=== PATIENT | male | born 1965 | race Caucasian/White ===

== ENCOUNTER 2019-09-21 08:00 | Outpatient (CLI) | payer MEDICARE | END 2019-09-21 23:59 | LOC: LAB.R 08:00 | PROVIDERS: ATTEND Physician Assistant Medical | DX: C81.91 Hodgkin lymphoma, unspecified, lymph nodes of head, face, and neck (principal) | CPT/HCPCS: 87070; 87181; 87205 ==

== ENCOUNTER 2019-10-24 13:30 | Outpatient (CLI) | payer OTHER | END 2019-10-24 23:59 | disposition home or self-care (01) | LOC: LAB.R 13:30 | PROVIDERS: ATTEND Physician Assistant Medical | DX: L08.9 Local infection of the skin and subcutaneous tissue, unspecified (principal) | CPT/HCPCS: 87070; 87077; 87205 ==

== ENCOUNTER 2019-11-07 12:37 | Emergency (ER) | payer OTHER ==
[2019-11-07 13:20] LABS: BILIRUBIN,URINE NEGATIVE (NEGATIVE); GLUCOSE, URINE (UA) NEGATIVE (NEGATIVE); KETONES,URINE (UA) NEGATIVE (NEGATIVE); LEUKOCYTE ESTERASE, URINE NEGATIVE (NEGATIVE); NITRITE,URINE NEGATIVE (NEGATIVE); OCCULT BLOOD,URINE NEGATIVE (NEGATIVE); PROTEIN,URINE NEGATIVE (NEGATIVE); UROBILINOGEN,URINE 0.2 (NORMAL) E.U./dL (NORMAL)
[2019-11-07 13:22] LABS: CLARITY,URINE CLEAR (CLEAR)
--- NOTE | 2019-11-07 13:47 | ED Physician Documentation ---
History of Present Illness - Stated complaint Stated Complaint: MALE - Chief complaint Chief Complaint: UTI - History obtained from History obtained from: Patient - History of Present Illness Timing: How many days ago (3-4) Pain level max: 0 Pain level now: 0 - Additonal information Additional information: 54-year-old male with Hodgkin's lymphoma, undergoing chemotherapy for the past 5 years. He states that over the past 3 days he has had issues with constipation. He also feels like he is incompletely emptying his bladder and having the urine more frequently. No dysuria. No hematuria. No fevers. Nothing makes it better or worse. No changes in his medications. Does not have any spinal involvement of his cancer that he is aware of Review of Systems Constitutional: denies: Fever, Chills Respiratory: denies: Cough GI: denies: Vomiting, Diarrhea Skin: denies: Rash Musculoskeletal: reports: Back pain (chronic low back pain, unchanged.). denies: Neck pain Neurologic: denies: Headache PD PAST MEDICAL HISTORY - Past Medical History Past Medical History: Yes Neuro: Other Endocrine/Autoimmune: Type 2 diabetes : Other Psych: Depression, Anxiety Derm: Other Other Past Medical History: Cancer-chemo - Past Surgical History Past Surgical History: Yes Ortho: Other - Present Medications Home Medications: Ambulatory Orders Medication Instructions Recorded Confirmed Acetaminophen [Tylenol Extra 1,000 mg PO Q6HR PRN 10/29/19 10/29/19 Strength] Alogliptin Benzoate [Alogliptin] 25 mg PO DAILY 10/29/19 10/29/19 Atorvastatin Calcium 10 mg PO QPM 10/29/19 10/29/19 Cholecalciferol (Vitamin D3) 1,000 unit PO DAILY 10/29/19 10/29/19 [Vitamin D3] Clindamycin HCl [Clindamycin 300MG 300 mg PO QID 10/29/19 10/29/19 CAP] Dimethicone/Olivamine 1 applic TD DAILY PRN 10/29/19 10/29/19 Dm 10/Guaifenesn 100mg/5ml 10 ml PO Q4HR PRN 10/29/19 10/29/19 Ferrous Sulfate 325 mg PO DAILY 10/29/19 10/29/19 Folic Acid 1 mg PO DAILY 10/29/19 10/29/19 Gabapentin [Neurontin] 600 mg PO QID 10/29/19 10/29/19 Ibuprofen [Motrin] 600 mg PO Q8HR PRN 10/29/19 10/29/19 Levofloxacin [Levaquin] 750 mg PO DAILY 10/29/19 10/29/19 Marijuana Cbd Gummy 1 lozenge PO DAILY 10/29/19 10/29/19 Melatonin 3 mg PO DAILY 10/29/19 10/29/19 Oxycodone HCl [Roxicodone] 5 mg PO Q4HR PRN 10/29/19 10/29/19 Pseudoephedrine HCl [Nasal 30 mg PO DAILY PRN 10/29/19 10/29/19 Decongestant] Sertraline HCl [Zoloft] 100 mg PO DAILY 10/29/19 10/29/19 Sodium Chloride For Inhalation 3 spray ERIK QID PRN 10/29/19 10/29/19 [Nebusal] glipiZIDE [Glipizide] 10 mg PO BID 10/29/19 10/29/19 - Allergies Allergies/Adverse Reactions: Allergies Allergy/AdvReac Type Severity Reaction Status Date / Time metformin AdvReac Unknown Verified 11/07/19 12:44 - Social History Does the pt smoke?: No Smoking Status: Former smoker Does the pt drink ETOH?: No Does the pt have substance abuse?: No - POLST Patient has POLST: No PD ED PE NORMAL - Vitals Vital signs reviewed: Yes - General General: Alert and oriented X 3, No acute distress - HEENT HEENT: Moist mucous membranes - Neck Neck: Supple, no meningeal sign - Cardiac Cardiac: RRR, Strong equal pulses - Respiratory Respiratory: No respiratory distress, Clear bilaterally - Abdomen Abdomen: Soft, Non tender, Non distended - Rectal Rectal: Other (Good rectal tone. Large ball of stool in the Rectal vault.) - Back Back: No spinal TTP - Derm Derm: Warm and dry - Extremities Extremities: Other (Normal bilateral lower extremity patellar and ankle jerk reflexes. Normal great toe extension bilaterally. no saddle anesthesia) - Neuro Neuro: Alert and oriented X 3, manager psychology 2-12 intact, No motor deficit, No sensory deficit - Psych Psych: Normal mood, Normal affect Results - Vitals Vitals: Vital Signs - 24 hr 11/07/19 11/07/19 12:44 15:11 Temperature 36.9 C Heart Rate 111 H 104 H Respiratory 14 16 Rate Blood Pressure 125/60 128/70 O2 Saturation 100 98 Oxygen O2 Source Room air - Labs Labs: Laboratory Tests 11/07/19 13:01 Urine Color LT. YELLOW Urine Clarity CLEAR Urine pH 6.0 Ur Specific [place] <=1.005 Urine Protein NEGATIVE Urine Glucose (UA) NEGATIVE Urine Ketones NEGATIVE Urine Occult Blood NEGATIVE Urine Nitrite NEGATIVE Urine Bilirubin NEGATIVE Urine Urobilinogen 0.2 (NORMAL) Ur Leukocyte Esterase NEGATIVE Ur Microscopic Review NOT INDICATED Urine Culture Comments NOT INDICATED PD MEDICAL DECISION MAKING - ED course Complexity details: reviewed results, re-evaluated patient, considered differential, d/w patient, d/w family ED course: Patient with a large postvoid residual on bedside ultrasound. Has a large ball of stool in the rectum, will trial an enema and see if this allows him to urinate freely.. Patient was given an enema with excellent results. He is now urinating without difficulty. Postvoid residual around 400 on bladder scan. This is down from approximately >1000 prior to the enema. Patient does not want a catheter at this time. We will see how he progresses over the next 2 to 3 days. He will return if he has continued difficulties urinating. He has an appointment with his doctor on Tuesday and has bladder should be reevaluated at that time. Patient counseled regarding signs and symptoms for which I believe and urgent re- evaluation would be necessary. Patient with good understanding of and agreement to plan and is comfortable going home at this time This document was made in part using voice recognition software. While efforts are made to proofread this document, sound alike and grammatical errors may occur. Departure - Departure Disposition: 01 Home, Self Care Clinical Impression: Urinary obstruction Constipation Qualifiers: Constipation type: unspecified constipation type Qualified Code(s): K59.00 - Constipation, unspecified Condition: Good Instructions: ED Constipation Follow-Up: Misha Galloway PA-C [Primary Care Provider] - Within 1 week Comments: Return if you worsen. It appears that the constipation was causing and outlet obstruction from your bladder and urethra. As you are urinating without diffic ulty now. We will have you follow-up with your doctor for further care.
[2019-11-07] MEDS ORDERED: MINERAL OIL ENEMA 133 ML BOTTLE RC STA (13:58)
[2019-11-07 15:12] VITALS: BP 128/70
== END 2019-11-07 15:11 | disposition home or self-care (01) ==
LOC: ED 12:37
DX: K59.00 Constipation, unspecified (principal); N13.8 Other obstructive and reflux uropathy; E11.9 Type 2 diabetes mellitus without complications; Z79.84 Long term (current) use of oral hypoglycemic drugs; Z87.891 Personal history of nicotine dependence
CPT/HCPCS: 51798; 81003; 99283; A9270; 81001; 87086